=== PATIENT | male | born 1975 | race Caucasian/White ===

== ENCOUNTER 2022-01-04 23:02 | Emergency (ER) | payer SELFPAY ==
[2022-01-05] MEDS ORDERED: NORVASC 10MG TA10 MG PO (00:55)
[2022-01-05] MEDS ORDERED: VIBRAMYCIN100 MG PO (00:55)
== END 2022-01-05 01:42 | disposition home or self-care (01) ==
LOC: FER 23:02
DX: S61.012A Laceration without foreign body of left thumb without damage to nail, initial encounter (principal); I10 Essential (primary) hypertension; F17.290 Nicotine dependence, other tobacco product, uncomplicated; I25.2 Old myocardial infarction; I25.10 Atherosclerotic heart disease of native coronary artery without angina pectoris; E11.9 Type 2 diabetes mellitus without complications; Z23 Encounter for immunization; Z79.84 Long term (current) use of oral hypoglycemic drugs; W26.0XXA Contact with knife, initial encounter; Y92.009 Unspecified place in unspecified non-institutional (private) residence as the place of occurrence of the external cause
CPT/HCPCS: 90471; 90715